=== PATIENT | male | born 1940 | race Caucasian/White ===

== ENCOUNTER 2023-08-10 16:12 | Emergency (ER) | payer MEDICARE, OTHER ==
[~2023-08-10] VITALS: Ht 182.9 cm; Wt 113.4 kg
[2023-08-10] MEDS ORDERED: ALLOPURINOL100 MG (19:08)
[2023-08-10] MEDS ORDERED: LEVOTHYROXINE75 MCG (19:08)
[2023-08-10] MEDS ORDERED: GABAPENTIN300 MG (19:08)
[2023-08-10] MEDS ORDERED: METFORMIN HCL500 MG (19:08)
[2023-08-10] MEDS ORDERED: LOSARTAN POTASS50 MG (19:08)
[2023-08-10 20:07] LABS: MCHC 32.2 g/dl (30-36)
[2023-08-10 20:09] LABS: BASOPHILS 0.2 % (0-2); EOSINOPHILS 2.5 % (0-6); HEMATOCRIT 42.8 % (35.0-50.0); HEMOGLOBIN 13.8 g/dL (12.0-18.0); LYMPHOCYTES 30.4 % (24-44); MCH 29.2 (27-36); MCV 90.6 fl (81-99); MONOCYTES 7.4 % (0-12); NEUTROPHILS 59.5 % (39-80); PLATELET COUNT 196 K/uL (140-440); RBC 4.73 M/ul (4.3-5.7)
[2023-08-10 20:22] LABS: ALBUMIN 2.9 g/dL (3.4-5.0); ALBUMIN/GLOBULIN RATIO 0.66 (1.1-2.4); ANION GAP 10.6 (7-21); BILIRUBIN, TOTAL 0.8 ng/dL (0.2-1.0); BUN/CREATININE RATIO 15.1 (6.0-28.6); CALCIUM 8.7 mg/dL (8.5-10.1); CREATININE, SERUM 1.39 mg/dL (0.70-1.30); POTASSIUM 4.6 mmol/L (3.5-5.1); PROTEIN, TOTAL 7.3 g/dL (6.4-8.2)
[2023-08-10 20:51] VITALS: BP 130/74
== END 2023-08-10 20:50 | disposition home or self-care (01) ==
LOC: ED 16:12
PROVIDERS: Emergency Medicine
DX: E11.40 Type 2 diabetes mellitus with diabetic neuropathy, unspecified (principal); I10 Essential (primary) hypertension; Z91.040 Latex allergy status; Z91.018 Allergy to other foods; Z91.048 Other nonmedicinal substance allergy status; Z79.899 Other long term (current) drug therapy; Z79.84 Long term (current) use of oral hypoglycemic drugs
CPT/HCPCS: 36415; 73590; 80053; 85025

== ENCOUNTER 2024-09-30 21:08 | Emergency (ER) | payer MEDICARE, OTHER ==
[~2024-09-30] VITALS: Ht 182.9 cm; Wt 104.8 kg
[~2024-09-30 21:08] MED LIST: ALLOPURINOL100 MG; BACTRIM DS TAB1 EACH PO; GABAPENTIN300 MG; LEVOTHYROXINE75 MCG; LOSARTAN POTASS50 MG; METFORMIN HCL500 MG
[2024-09-30 21:31] LABS: BASOPHILS 1.3 % (0-2); EOSINOPHILS 1.6 % (0-6); HEMATOCRIT 46.3 % (35.0-50.0); HEMOGLOBIN 15.3 g/dL (12.0-18.0); LYMPHOCYTES 11.9 % (24-44); MCH 29.8 (27-36); MCHC 33.1 g/dl (30-36); MCV 89.9 fl (81-99); NEUTROPHILS 78.2 % (39-80); PLATELET COUNT 213 K/uL (140-440); RBC 5.15 M/ul (4.3-5.7); RDW 14.7 (10.5-15.0)
[2024-09-30 21:46] LABS: ALBUMIN 3.3 g/dL (3.4-5.0); ALBUMIN/GLOBULIN RATIO 0.66 (1.1-2.4); ANION GAP 12.2 (7-21); BILIRUBIN, TOTAL 1.7 ng/dL (0.2-1.0); BUN/CREATININE RATIO 11.62 (6.0-28.6); CALCIUM 9.8 mg/dL (8.5-10.1); CREATININE, SERUM 1.29 mg/dL (0.70-1.30); POTASSIUM 4.2 mmol/L (3.5-5.1); PROTEIN, TOTAL 8.3 g/dL (6.4-8.2)
[2024-09-30 22:22] LABS: BILIRUBIN, URINE POSITIVE (negative); BLOOD/HGB, URINE SMALL (Negative); KETONE, URINE SMALL (Negative); LEUK ESTERASE, URINE NEGATIVE (negative); NITRITE, URINE NEGATIVE (negative); PH, URINE 5.5 (5-7)
[2024-09-30 22:38] LABS: EPITHELIAL CELLS, URINE SQUAMOUS 2+ /lpf (0-1+)
[2024-09-30 22:39] LABS: BACTERIA, URINE 1+ /hpf (negative); CASTS, URINE HYALINE 1+ \\lpf; COLLECTION TYPE, URINE CLEAN CATCH; CRYSTALS, URINE CALCIUM OXALATE 1+ (0-1+); REFLEX CULTURE, URINE No (No)
[2024-09-30] MEDS ORDERED: NITROFURANTOIN MONOHYD MACROCR 100 MG HOME.PACK PO ONE (23:45)
[2024-09-30] MEDS ORDERED: MACROBID 100 M100 MG PO (23:50)
[2024-10-01 01:08] VITALS: BP 166/87
--- NOTE | 2024-10-03 22:52 | EKG ---
[facility] [address] [place] [address] Signed Atrial fibrillation Incomplete right bundle branch block Abnormal ECG No previous ECGs available Confirmed by Len Goncalves MD () on 10/03/2024 10:52:40 PM Electronically Signed By: LEN GONCALVES MD 10/03/242251 PATIENT NAME: MAKENNA HUSSEIN Electrocardiogram DATE OF : 40 PHYSICIAN: LEN GONCALVES MD REPORT #: [id number] REPORT IS CONFIDENTIAL AND NOT TO BE RELEASED WITHOUT AUTHORIZATION
== END 2024-10-01 01:08 | disposition home or self-care (01) ==
LOC: ED 21:08
PROVIDERS: Family Medicine
DX: N39.0 Urinary tract infection, site not specified (principal); R00.9 Unspecified abnormalities of heart beat; E11.40 Type 2 diabetes mellitus with diabetic neuropathy, unspecified; I10 Essential (primary) hypertension; E03.9 Hypothyroidism, unspecified; Z91.040 Latex allergy status; Z91.018 Allergy to other foods; Z88.8 Allergy status to other drugs, medicaments and biological substances; Z79.890 Hormone replacement therapy; Z79.84 Long term (current) use of oral hypoglycemic drugs; Z79.899 Other long term (current) drug therapy
CPT/HCPCS: 36415; 74176; 80053; 81001; 83735; 84484; 85025; 93005; 93010; 94799; 99285-25

== ENCOUNTER 2024-10-02 09:13 | Emergency (ER) | payer MEDICARE, OTHER ==
[~2024-10-02] VITALS: Ht 182.9 cm; Wt 100.2 kg
[2024-10-02 09:38] LABS: BASOPHILS 0.8 % (0-2); EOSINOPHILS 3.1 % (0-6); HEMATOCRIT 44.2 % (35.0-50.0); HEMOGLOBIN 14.8 g/dL (12.0-18.0); MCH 29.8 (27-36); MCHC 33.4 g/dl (30-36); MCV 89.2 fl (81-99); MONOCYTES 7.1 % (0-12); PLATELET COUNT 186 K/uL (140-440); RBC 4.96 M/ul (4.3-5.7); RDW 14.5 (10.5-15.0)
[2024-10-02 09:46] LABS: ALBUMIN/GLOBULIN RATIO 0.65 (1.1-2.4); ANION GAP 12.8 (7-21); BILIRUBIN, TOTAL 2.3 ng/dL (0.2-1.0); BUN/CREATININE RATIO 13.23 (6.0-28.6); CALCIUM 9.2 mg/dL (8.5-10.1); CREATININE, SERUM 1.36 mg/dL (0.70-1.30); POTASSIUM 3.8 mmol/L (3.5-5.1); PROTEIN, TOTAL 7.6 g/dL (6.4-8.2)
[2024-10-02 10:39] LABS: BILIRUBIN, URINE POSITIVE (negative); BLOOD/HGB, URINE TRACE-L (Negative); KETONE, URINE SMALL (Negative); LEUK ESTERASE, URINE NEGATIVE (negative); NITRITE, URINE NEGATIVE (negative); PH, URINE 5.5 (5-7)
[2024-10-02 10:44] LABS: EPITHELIAL CELLS, URINE SQUAMOUS 1+ /lpf (0-1+)
[2024-10-02 10:46] LABS: BACTERIA, URINE NONE SEEN /hpf (negative); CASTS, URINE HYALINE 1+ \\lpf; COLLECTION TYPE, URINE CLEAN CATCH; CRYSTALS, URINE CALCIUM OXALATE 1+ (0-1+); RED BLOOD CELLS, URINE 0-1 /hpf (0-5); REFLEX CULTURE, URINE No (No); WHITE BLOOD CELLS, URINE 0-1 /HPF (0-5)
[2024-10-02 12:05] VITALS: BP 160/77
== END 2024-10-02 12:45 | disposition home or self-care (01) ==
LOC: ED 09:13
PROVIDERS: Emergency Medicine
DX: R53.1 Weakness (principal); E11.40 Type 2 diabetes mellitus with diabetic neuropathy, unspecified; I10 Essential (primary) hypertension; E03.9 Hypothyroidism, unspecified; Z91.81 History of falling; Z90.49 Acquired absence of other specified parts of digestive tract; Z91.040 Latex allergy status; Z91.018 Allergy to other foods; Z88.8 Allergy status to other drugs, medicaments and biological substances; Z79.890 Hormone replacement therapy; Z79.84 Long term (current) use of oral hypoglycemic drugs; Z79.899 Other long term (current) drug therapy
CPT/HCPCS: 36415; 71045; 73552; 80053; 81001; 85025; 99284-25

== ENCOUNTER 2025-07-14 18:25 | Emergency (ER) | payer MEDICARE, OTHER ==
[~2025-07-14] VITALS: Ht 182.9 cm; Wt 94.3 kg
--- OUTSIDE RECORDS SUMMARY | ~2025-07-14 | XMS | Continuity of Care Document ---
Demographics + + + | Address | [address] | | | [place] [address] | + + + | Preferred Language | Unknown | + + + | Marital Status | | + + + | Oriental Orthodox Affiliation | Unknown | + + + | Race | White | + + + | Ethnic Group | Not or | + + + Author + + + | Author | [facility] | + + + | Organization | [facility] | + + + | Address | [address] | | | [place] [address] | + + + | Phone | | + + + Care Team Providers + + + + | Care Pizzamaker Name | Role | Phone | + + + + Unavailable | Unavailable | + + + + Allergies No information. Encounters No information. Functional Status No information. Immunizations No information. Medications + + + + | date | description | facility | + + + + | (no date) | ALLOPURINOL | [facility] | | | | [facility] | + + + + | (no date) | GABAPENTIN | [facility] | | | | [facility] | + + + + | (no date) | METFORMIN HCL | [facility] | | | | [facility] | + + + + | (no date) | LEVOTHYROXINE SODIUM | [facility] | | | | [facility] | + + + + | (no date) | LOSARTAN POTASSIUM | [facility] | | | | [facility] | + + + + Problems No information. Procedures No information. Results/Labs No information. Social History + + + + | date | description | facility | + + + + | (no date) | Unknown if ever smoked | [facility] | | | | [facility] | + + + + Vital Signs No information."
[~2025-07-14 18:25] MED LIST changes: +MACROBID 100 M100 MG PO
[2025-07-14] MEDS ORDERED: fentaNYL citrate 100 MCG/2 ML VIAL ONE (18:29)
[2025-07-14 18:39] LABS: BASOPHILS 1.3 % (0.2-1.2); EOSINOPHILS 6.2 % (0.8-7.0); LYMPHOCYTES 30.4 % (21.8-53.1); MCH 30.9 PG (25.7-32.2); MCHC 31.7 g/dL (32.3-36.5); MCV 97.5 fL (79.0-92.2); MONOCYTES 6.9 % (5.3-12.2); NEUTROPHILS 54.8 % (34.0-67.9); RBC 3.66 M/uL (4.63-6.08)
[2025-07-14] MEDS ORDERED: fentaNYL citrate 100 MCG/2 ML VIAL IV ONE (18:45)
[2025-07-14 18:52] LABS: INR 1.09 (0.80-1.30); PROTIME 13.4 Sec (11.2-14.2)
[2025-07-14] MEDS ORDERED: ATROPINE SULFATE 1 MG/10 ML SYR IV SCH (19:00)
[2025-07-14] MEDS ORDERED: SODIUM CHLORIDE 0.9% 500 ML IV PRN (19:00)
[2025-07-14 19:03] LABS: ALT (SGPT) 12.0 U/L (14-59); AST (SGOT) 16.0 U/L (15-37); GLOMERULAR FILTRATION RATE,EST 55.0 mL/min (>60); PROTEIN, TOTAL 6.8 g/dL (6.4-8.2); UREA NITROGEN 20.0 mg/dL (7-18)
[2025-07-14] MEDS ORDERED: IPRATROPIUM BRO30 ML NAS (19:45)
[2025-07-14 19:55] LABS: CORONAVIRUS COVID-19 AG NEGATIVE (NEGATIVE)
[2025-07-14 21:35] VITALS: BP 101/76
--- NOTE | 2025-07-15 21:22 | EKG ---
[facility] [address] [place] [address] Signed Atrial fibrillation with a competing junctional pacemaker Abnormal ECG When compared with ECG of 30-SEP-2024 22:06, Incomplete right bundle branch block is no longer present Confirmed by Len Chamberlain MD () on 07/15/2025 9:22:41 PM Electronically Signed By: LEN CHAMBERLAIN MD 07/15/252121 PATIENT NAME: FREIDA HUSSEINBRANDI NIXON Electrocardiogram DATE OF : 40 PHYSICIAN: LEN CHAMBERLAIN MD REPORT #: [id number] REPORT IS CONFIDENTIAL AND NOT TO BE RELEASED WITHOUT AUTHORIZATION
== END 2025-07-14 21:35 | disposition short-term general hospital (02) ==
LOC: ED 18:25
PROVIDERS: Emergency Medicine
DX: R00.1 Bradycardia, unspecified (principal); I10 Essential (primary) hypertension; E03.9 Hypothyroidism, unspecified; E11.40 Type 2 diabetes mellitus with diabetic neuropathy, unspecified; Z79.899 Other long term (current) drug therapy; Z79.84 Long term (current) use of oral hypoglycemic drugs; Z91.040 Latex allergy status; Z91.018 Allergy to other foods
CPT/HCPCS: 36415; 51702; 70450; 71045; 80053; 83735; 83880; 84443; 84484; 85025; 85610; 85730; 93005; 93010; 96374; 96375; 99285-25; A6590; J0461; J3010; J7040